=== PATIENT | female | born 1985 | race Hispanic/Latino ===

== ENCOUNTER 2018-09-30 08:11 | Observation (INO) | payer MEDICAID ==
[~2018-09-30] VITALS: Ht 157.5 cm; Wt 139.7 kg
[2018-09-30] MEDS ORDERED: ONDANSETRON ODT 4 MG TAB ONE (08:35)
[2018-09-30 08:40] LABS: APPEARANCE,URINE Cloudy (CLEAR); BILIRUBIN,URINE Negative (NEGATIVE); COLOR,URINE Yellow (YELLOW); GLUCOSE, URINE (UA) Negative (NEGATIVE); KETONES,URINE >=160 mg/dL (NEGATIVE); LEUKOCYTE ESTERASE ,URINE Trace (NEGATIVE); NITRATE,URINE Negative (NEGATIVE); OCCULT BLOOD,URINE Nonhemolyzed Trace (NEGATIVE); PH,URINE 5.5 (5.0-8.0); PROTEIN,URINE POS 1+ (NEGATIVE)
[2018-09-30 08:59] LABS: BACTERIA,URINE Many /HPF (None Seen); RBC,URINE 0-1 /HPF (0-1)
[2018-09-30 09:00] LABS: SQUAMOUS EPITHELIAL CELL,UR 30-50 /HPF (0-2)
== END 2018-09-30 10:57 | disposition home or self-care (01) ==
LOC: EDH 08:11 → LDH 08:12
PROVIDERS: ADMIT Specialist; ATTEND Specialist
DX: O26.893 Other specified pregnancy related conditions, third trimester (principal); R19.7 Diarrhea, unspecified; R11.0 Nausea; Z3A.29 29 weeks gestation of pregnancy
CPT/HCPCS: 81001; 99284; G0378 ×3

== ENCOUNTER 2018-11-04 10:26 | Observation (INO) | payer MEDICAID ==
[~2018-11-04] VITALS: Ht 157.5 cm; Wt 146.5 kg
[2018-11-04] MEDS ORDERED: LACTATED RINGERS 1000ML 1,000 ML IV SCH (11:00)
[2018-11-04 11:10] LABS: APPEARANCE,URINE Cloudy (CLEAR); BILIRUBIN,URINE Negative (NEGATIVE); COLOR,URINE Yellow (YELLOW); GLUCOSE, URINE (UA) Negative (NEGATIVE); KETONES,URINE >=80 mg/dL (NEGATIVE); LEUKOCYTE ESTERASE ,URINE Moderate (NEGATIVE); NITRATE,URINE Negative (NEGATIVE); OCCULT BLOOD,URINE Negative (NEGATIVE); PH,URINE 5.5 (5.0-8.0); PROTEIN,URINE Negative (NEGATIVE)
[2018-11-04 11:52] LABS: RBC,URINE 0-1 /HPF (0-1)
[2018-11-04 11:53] LABS: BACTERIA,URINE Many /HPF (None Seen)
[2018-11-04] MEDS ORDERED: INSULIN HUMULIN R 100 UNIT/ML 3ML SQ SCH (12:00)
[2018-11-04 19:05] VITALS: BP 127/62
--- NOTE | 2018-11-04 19:05 | NUR ---
Patient received from L&D. Patient came in via wheelchair accompanied by top lift nailer and sister. She and sister oriented to the room, call light given. Plan of care discussed with patient verbalizes understanding.
[2018-11-04] MEDS ORDERED: PREN1COM14 PO (20:11)
--- NOTE | 2018-11-04 21:59 | NUR ---
NST reactive: External monitor on at 2120 was turned off at 2158. FHT had break in tracing baseline 130. moderate variability with acceleration. Contraction X 3 noted 60-70 seconds duration no deceleration.
[2018-11-04 23:50] VITALS: BP 97/52
[2018-11-05 03:26] VITALS: BP 117/51
[2018-11-05] MEDS ORDERED: INSULIN HUMULIN R 100 UNIT/ML 3ML SQ SCH (07:30)
[2018-11-05 07:43] VITALS: BP 115/63
[2018-11-05] MEDS ORDERED: ACETAMINOPHEN EXTRA STRENGTH 500 MG TABLET PO SCH (10:45)
[2018-11-05 11:39] VITALS: BP 104/51
--- NOTE | 2018-11-05 12:05 | NUR ---
COMFORT C/O HEADACHE 11/02. BLOOD PRESSURE 104/51. PATIENT DENIES DIZZINESS, BLURRY VISION, NAUSEA/VOMITING. EDUCATED PATIENT ON THE SYMPTOMS TO REPORT, PATIENT VERBALIZED UNDERSTANDING.
--- NOTE | 2018-11-05 15:13 | NUR ---
GESTATIONAL DIABETES DIET EDUCATION: VEE provided pt with printed materials of Gestational diabetes diet. Printed materials reviewed in detail. Pt with multiple dietary questions, all questions answered by VEE. Please consult VEE if pt continues to have additional nutritional questions. Addendum: 11/05/18 at [address] Amended: Links added.
--- NOTE | 2018-11-05 15:20 | NUR ---
DISCHARGE PATIENT LEFT UNIT VIA WHEELCHAIR. PERSONAL VEHICLE USED FOR TRANSPORTATION. NO COMPLAINTS OR CONCERNS ADDRESSED FROM PATIENT ON DISCHARGE.
== END 2018-11-05 15:20 | disposition home or self-care (01) ==
LOC: LDH 10:26 → WSH 19:09
PROVIDERS: ADMIT Specialist; ATTEND Specialist
DX: O24.419 Gestational diabetes mellitus in pregnancy, unspecified control (principal); Z3A.35 35 weeks gestation of pregnancy
CPT/HCPCS: 59025 ×2; 76819; 81001; 82948 ×5; G0378 ×30

== ENCOUNTER 2018-11-30 12:53 | Emergency (ER) | payer MEDICAID ==
[~2018-11-30 12:53] MED LIST: PREN1COM14 PO
== END 2018-11-30 13:25 | disposition home or self-care (01) ==
LOC: EDH 12:53
DX: O86.09 Infection of obstetric surgical wound, other surgical site (principal); Z98.890 Other specified postprocedural states; M06.9 Rheumatoid arthritis, unspecified